=== PATIENT | male | born 1995 | race Caucasian/White ===

== ENCOUNTER 2016-09-12 03:46 | Emergency (ER) | payer BC ==
[2016-09-12 04:00] VITALS: BP 141/73; PULSE 69; RESP 20; TEMP 98.4
[2016-09-12] MEDS ORDERED: AMOXIC-POT CLAV 875MG STARTER 2 EACH TABLET PO STA (04:05)
[2016-09-12] MEDS ORDERED: IBUPROFEN 800 MG TAB PO STA (04:05)
--- NOTE | 2016-09-12 04:11 | ED ---
URI HPI - General Chief Complaint: Upper Respiratory Infection Stated Complaint: ENT, LEFT FACIAL NUMBNESS Time Seen by Provider: 09/12/16 03:55 Source: patient, RN notes reviewed Mode of arrival: ambulatory Limitations: no limitations - History of Present Illness Initial Comments: This is a 20-year-old male who states he had cold symptoms started about a week ago but today started developing left facial pain and some numbness left ear pain. He denies any overt fevers chills or sweats he says nasal congestion slight cough no definite phlegm production. No other complaints MD Complaint: sinus pain, other - Related Data Previous Rx's Medication Instructions Recorded Amoxicillin/Potassium Clav 1 tab PO Q12HR #20 tab 09/12/16 [Augmentin 875-125 Tablet] Ibuprofen [Motrin] 800 mg PO Q6HR PRN #20 tab 09/12/16 guaiFENesin [Mucinex] 600 mg PO Q12HR #20 tablet.er 09/12/16 Allergies Allergy/AdvReac Type Severity Reaction Status Date / Time No Known Allergies Allergy Verified 09/12/16 03:53 Review of Systems ROS Statement: Those systems with pertinent positive or pertinent negative responses have been documented in the HPI. ROS Other: All systems not noted in ROS Statement are negative. Past Medical History Past Medical History: No Reported History History of Any Multi-Drug Resistant Organisms: None Reported Past Surgical History: No Surgical Hx Reported Past Psychological History: No Psychological Hx Reported Smoking Status: Never smoker Past Alcohol Use History: None Reported Past Drug Use History: None Reported General Exam - General Exam Comments Initial Comments: This is a well-developed well-nourished awake alert oriented 3 male Limitations: no limitations General appearance: alert, in no apparent distress Head exam: Present: atraumatic, normocephalic, normal inspection Eye exam: Present: normal appearance, PERRL, EOMI. Absent: scleral icterus, conjunctival injection, periorbital swelling ENT exam: Present: mucous membranes moist, other (I'll posterior pharyngeal hyperemia without exudate. Left tympanic membrane is erythematous and dull with some fluid behind it. There is tenderness to percussion over the left frontal and maxillary sinuses.) Neck exam: Present: normal inspection, full ROM. Absent: tenderness, meningismus, lymphadenopathy Respiratory exam: Present: normal lung sounds bilaterally. Absent: respiratory distress, wheezes, rales, rhonchi, stridor Cardiovascular Exam: Present: regular rate, normal rhythm, normal heart sounds. Absent: systolic murmur, diastolic murmur, rubs, gallop, clicks Extremities exam: Present: normal inspection, full ROM, normal capillary refill. Absent: tenderness, pedal edema, joint swelling, calf tenderness Back exam: Absent: tenderness Neurological exam: Present: alert, oriented X3, CN II-XII intact Psychiatric exam: Present: normal affect, normal mood Skin exam: Present: warm, dry, intact, normal color. Absent: rash Course Vital Signs 09/12/16 03:49 Temperature 98.4 F Pulse Rate 69 Respiratory 20 Rate Blood Pressure 141/73 O2 Sat by Pulse 100 Oximetry Medical Decision Making - Medical Decision Making The clinical presentation is consistent with sinusitis and otitis media patient will be placed on appropriate medication. Disposition Clinical Impression: Acute frontal sinusitis, Left otitis media, Otalgia of left ear Disposition: HOME SELF-CARE Condition: Good Instructions: Sinusitis (ED), Earache (ED), Otitis Media (ED) Prescriptions: Amoxicillin/Potassium Clav [Augmentin 875-125 Tablet] 1 tab PO Q12HR #20 tab Ibuprofen [Motrin] 800 mg PO Q6HR PRN #20 tab PRN Reason: Pain guaiFENesin [Mucinex] 600 mg PO Q12HR #20 tablet.er
== END 2016-09-12 04:20 | disposition home or self-care (01) ==
LOC: EC 03:46
DX: J01.10 Acute frontal sinusitis, unspecified (principal); H66.92 Otitis media, unspecified, left ear
CPT/HCPCS: 99283